=== PATIENT | female | born 1970 | race Caucasian/White ===

== ENCOUNTER 2016-08-06 10:24 | Emergency (ER) | payer BC, MEDICAID ==
[~2016-08-06] VITALS: Wt 77.0 kg
--- NOTE | 2016-08-06 11:48 | ERD ---
ER Documentation Chief Complaint Date/Time DATE: 08/06/16 TIME: 11:44 Chief Complaint bilateral hand numbness with mild vaughn and dizziness. no neuro def. HPI 46-year-old female was referred to the emergency department for bilateral upper extremity numbness with a headache for the past 5 days. She states that she has had intermittent numbness to her upper extremities proximally, at times on the right and left lasting for several minutes, it is associated with neck pain. She also reports a bitemporal headache that is throbbing, gradual in onset, she has had this headache before in the past several times but she states that this 1 seems to be worse. She denies any visual changes or weakness , no trauma. 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 ROS All systems reviewed and are negative except as per history of present illness. Medications Home Meds Active Scripts Naproxen* (Naprosyn*) 500 Mg Tablet, 500 MG PO BID Y for PAIN AND/OR INFLAMMATION, #30 TAB Prov:JANESSA LOBO PA-C 08/06/16 Allergies Allergies: Coded Allergies: No Known Allergy (Unverified , 08/06/16) PMhx/Soc History of Surgery: Yes (removal of cyst in the armpit) Anesthesia Reaction: No Hx Neurological Disorder: No Hx Respiratory Disorders: No Hx Cardiac Disorders: No Hx Psychiatric Problems: No Hx Miscellaneous Medical Probl: No Hx Alcohol Use: Yes (socially) Hx Substance Use: No Hx Tobacco Use: No Smoking Status: Never smoker Physical Exam Vitals Vital Signs Date Time Temp Pulse Resp B/P Pulse Ox O2 Delivery O2 Flow Rate FiO2 08/06/16 10:31 97.2 72 20 121/81 99 Physical Exam General: Well-developed, well-nourished. The patient appears in no acute distress. HEENT: Head is normocephalic, atraumatic. Neck: Supple. Nontender. Lungs: Clear to auscultation. Normal air movement. Heart: Regular rate and rhythm. S1 and S2 are normal. No murmurs, gallops, or rubs. Abdomen: Soft, nontender, nondistended. Bowel sounds are normoactive. Extremities: No clubbing or cyanosis. Normal pulses. Moving extremities x 4. No weakness. Neuro: M/S: Alert and oriented Face: EOMI, CN II-XII grossly intact Motor: Normal strength throughout Sensation: Normal sensation throughout Speech: Normal Cerebel: Normal coordination Normal gait Normal finger to nose DTR: 2+ and symmetric upper/lower extremities Skin: Normal turgor. No rash or lesions. Results 24 hrs PROCEDURE: CT Brain without contrast. CLINICAL INDICATION: Temporal headache with bilateral arm numbness intermittently x5 days TECHNIQUE: A CT of the brain was performed on a GE [employer] 64-slice CT scanner utilizing axial imaging from the skull base through the vertex without IV contrast. Multiplanar reformatted images were made. Images were reviewed on a PACS workstation. The CTDIvol is 51.11 mGy and the DLP is 715.55 mGycm. One or the following dose reduction techniques were used: -Automated exposure control. -Adjustment of the mA and/or KV according to patient's size. -Use of iterative reconstruction technique COMPARISON: None FINDINGS: There is no intracranial hemorrhage, mass effect, or midline shift. No extra- axial fluid collection is seen. The ventricles and sulci are normal in size and configuration. The density of the brain is normal, and the simon white matter differentiation appears well-preserved. The visualized paranasal sinuses and osseous structures are grossly unremarkable. IMPRESSION: 1. No evidence of acute intracranial pathology. 2. The brain is normal in appearance. RPTAT: AAC Physician Ni Date Time Electronically viewed and signed by Physician Ni on 08/06/2016 12: 25 PROCEDURE: CT cervical spine without contrast CLINICAL INDICATION: Bilateral arm numbness. Neck pain. TECHNIQUE: CT scan of the cervical spine was performed on a multidetector high -resolution CT scanner. No IV contrast was administered. Coronal and sagittal reformatted images were obtained from the axial source images. Images were reviewed on a high-resolution PACS workstation. One or more the following does reduction techniques were utilized: Automated exposure control, adjustment of the mA/ or kV according to patient's size, or use of iterative reconstruction technique. Exam CTDI = 27.62 mGy and the DLP = 502.12 mGy-cm. COMPARISON: None available. FINDINGS: There is reversal of normal cervical lordosis centered at C4-C5. Alignment remains intact. No acute fracture or dislocation is seen. The vertebral body heights and disk spaces are preserved. No significant spinal canal or foraminal stenosis is noted. No mass, hematoma, or other soft tissue abnormality is seen. There are mild to moderate degenerative changes of the cervical spine, manifested by osteophytosis and disc height narrowing, mainly at C5-C6. Uncovertebral osteophytes contribute to mild bilateral foraminal stenosis. Prominent posterior disk osteophyte complex at C5-C6 contribute to moderate spinal canal stenosis. The AP diameter of the spinal canal measures approximately 7 mm. IMPRESSION: 1. Reversal of normal cervical lordosis centered at C4-C5. 2. No acute fracture or traumatic subluxation. 3. 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 RPTAT: HH .Yaquelin Trujillo MD, MD Date Time Electronically viewed and signed by .Yaquelin Trujillo MD, MD on 08/06/2016 13: 14 .N/ Laboratory Tests Test 08/06/16 12:57 Bedside Glucose 71mg/dL Procedures/MDM ED course: Accu-Chek was done, normal at 71. MDM: 46-year-old female presents with bilateral arm numbness and headache for the past 5 days, consistent with cervical radiculopathy and tension headache. This patient had a CT of the cervical spine that shows narrowing at the C5-C6 consistent with her bilateral shoulder numbness. There is no associated weakness, she does not show signs of meningitis, transverse myelitis, neuropraxia, or signs of TIA or CVA. Patient's history is not concerning for any intracranial process. She was given results for her CT of the head as well as CT of the cervical spine and was asked to follow-up with her PCP. Physical therapy was recommended. Departure Diagnosis: Primary Impression: Cervical radiculopathy Additional Impression: Headache Condition: JANESSA Evans PA-C Aug 06, 2016 11:48
--- NOTE | 2016-08-06 12:25 | RADRPT ---
PROCEDURE: CT Brain without contrast. CLINICAL INDICATION: Temporal headache with bilateral arm numbness intermittently x5 days TECHNIQUE: A CT of the brain was performed on a [email or web address] 64-slice CT scanner utilizing axial imaging from the skull base through the vertex without IV contrast. Multiplanar reformatted images were made. Images were reviewed on a PACS workstation. The CTDIvol is 51.11 mGy and the DLP is 715 .55 mGycm. One or the following dose reduction techniques were used: -Automated exposure control. -Adjustment of the mA and/or KV according to patient's size. -Use of iterative reconstruction technique COMPARISON: None FINDINGS: There is no intracranial hemorrhage, mass effect, or midline shift. No extra-axial fluid collection is seen. The ventricles and sulci are normal in size and configuration. The density of the brain is normal, and the simon white matter differentiation appears well-preserved. The visualized paranasal sinuses and osseous structures are grossly unremarkable. IMPRESSION: 1. No evidence of acute intracranial pathology. 2. The brain is normal in appearance. RPTAT: [facility] Physician Ni Date Time Electronically viewed and signed by Physician Ni on 08/06/2016 12:25 /
--- NOTE | 2016-08-06 13:14 | RADRPT ---
PROCEDURE: CT cervical spine without contrast CLINICAL INDICATION: Bilateral arm numbness. Neck pain. TECHNIQUE: CT scan of the cervical spine was performed [facility] No IV contrast was administered. Coronal and sagittal reformatted images were obtained from th e axial source images. Images were reviewed on a high-resolution PACS workstation. One or more the f ollowing does reduction techniques were utilized: Automated exposure control, adjustment of the mA/ or kV according to patient's size, or use of iterative reconstruction technique. Exam CTDI = 27.62 m Gy and the DLP = 502.12 mGy-cm. COMPARISON: None available. FINDINGS: There is reversal of normal cervical lordosis centered at C4-C5. Alignment remains intact. No acut e fracture or dislocation is seen. The vertebral body heights and disk spaces are preserved. No sig nificant spinal canal or foraminal stenosis is noted. No mass, hematoma, or other soft tissue abnor mality is seen. There are mild to moderate degenerative changes of the cervical spine, manifested by osteophytosis a nd disc height narrowing, mainly at C5-C6. Uncovertebral osteophytes contribute to mild bilateral fo raminal stenosis. Prominent posterior disk osteophyte complex at C5-C6 contribute to moderate spinal canal stenosis. The AP diameter of the spinal canal measures approximately 7 mm. IMPRESSION: 1. Reversal of normal cervical lordosis centered at C4-C5. 2. No acute fracture or traumatic subluxation. 3. 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 RPTAT: HH .Yaquelin Trujillo MD, MD Date Time Electronically viewed and signed by .Yaquelin Trujillo MD, MD on 08/06/2016 13:14 .N/
[2016-08-06] MEDS ORDERED: NAPR-260 PO (13:27)
[2016-08-06 13:57] VITALS: BP 123/74; PULSE 62; RESP 19
== END 2016-08-06 14:01 | disposition home or self-care (01) ==
LOC: FTE 10:24
DX: M54.12 Radiculopathy, cervical region (principal); R51 Headache
CPT/HCPCS: 70450; 72125; 82962